=== PATIENT | male | born 1955 | race Caucasian/White ===

== ENCOUNTER 2017-12-28 14:49 | Emergency (ER) | payer BC ==
[~2017-12-28] VITALS: Ht 177.8 cm; Wt 86.4 kg
[2017-12-28 15:48] LABS: BASOPHIL (%) 0.7 % (0-1); BASOPHIL COUNT 0.1 K/uL (0-0.1); EOSINOPHIL (%) 11.5 % (0-5); EOSINOPHIL COUNT 0.9 K/uL (0-0.3); HEMATOCRIT 44.9 % (38.0-50.0); HEMOGLOBIN 15.6 G/DL (12.5-16.6); IMMATURE GRANULOCYTE (%) 0.3 % (0.0-0.7); LYMPHOCYTE (%) 13.4 % (15-42); MCH 30.2 PG (29.0-34.0); MCHC 34.7 G/DL (30.0-36.0); MCV 86.8 FL (86-99); MONOCYTE (%) 10.4 % (3-12); MONOCYTE COUNT 0.8 K/uL (0-0.8); NEUTROPHIL (%) 63.7 % (45-76); NEUTROPHIL COUNT 4.9 K/uL (1.8-6.4); PLATELET COUNT 282 K/uL (156-360); RBC DIS.WIDTH-CV 12.8 % (11.8-14.6); RBC DIS.WIDTH-SD 40.6 % (39-53); RED BLOOD COUNT 5.17 M/uL (4.00-5.50); WHITE BLOOD COUNT 7.6 K/uL (4.1-10.2)
[2017-12-28 15:59] LABS: CHLORIDE 108 mEq/L (99-109); POTASSIUM 4.1 mEq/L (3.7-5.4); SODIUM 138 mEq/L (136-147)
[2017-12-28 16:01] LABS: GLUCOSE 98 mg/dL (70-99)
[2017-12-28 16:04] LABS: GFR ESTIMATE (CALCULATED) > 59 mL/min/ (58.99-99999)
[2017-12-28 16:05] LABS: UREA NITROGEN (BUN) 14 mg/dL (9-23)
[2017-12-28] MEDS ORDERED: NAPROXEN500 MG PO (17:54)
[2017-12-28] MEDS ORDERED: FUTURO RESTORI1 EACH MC (18:04)
[2017-12-28 18:18] VITALS: BP 122/72
== END 2017-12-28 18:38 | disposition home or self-care (01) ==
LOC: EME 14:49
PROVIDERS: Physician Assistant
DX: I80.01 Phlebitis and thrombophlebitis of superficial vessels of right lower extremity (principal); Z87.891 Personal history of nicotine dependence
CPT/HCPCS: 80048; 83605; 85025; 87040; 93971; 99281; 99284